=== PATIENT | female | born 1970 | race African-American/Black ===

== ENCOUNTER 2017-02-13 12:01 | Inpatient (IN) | payer MEDICAID ==
[~2017-02-13] VITALS: Ht 160 cm; Wt 141.5 kg
[~2017-02-13 12:01] MED LIST: DILANTIN 100MG100 MG PO; DITROPAN 5MG TAB5 MG PO; LEVAQUIN 5500 MG/TA1 PO; NORCO 325 MG-51 TAB PO; RISPERDAL4 MG PO; RT ALBUTER2.5 MG/0.5 IH; SINGULAIR 110 MG/TAB PO; SYNTHROID0.05 MG/TA PO; TRIAMCINOLONE A15 GM TP; VENTOLIN0.09 MG IH; ZOFRAN 4MG T4 MG/TAB PO; ZOLOFT 100MG100 MG PO; ZYRTEC 10MG10 MG PO
[2017-04-28] VITALS (384 sets, daily range): BP systolic 107–146; BP diastolic 50–93; PULSE 76–90; TEMP 97–98; O2SAT 96–100
[2017-04-28] MEDS ORDERED: AMITRIPTYLINE H50 M1 PO (17:52)
[2017-04-28] MEDS ORDERED: LASIX 40MG TABL40 MG PO (17:58)
[2017-04-28] MEDS ORDERED: COLACE 100100 MG/CAP PO (17:59)
[2017-04-28] MEDS ORDERED: LOPRESSOR 225 MG/TAB PO (18:01)
[2017-04-28] MEDS ORDERED: K-DUR20 MEQ PO (18:02)
[2017-04-28] MEDS ORDERED: VITAMIN D 50,1.25 MG PO (18:03)
[2017-04-29] VITALS (510 sets, daily range): BP systolic 93–133; BP diastolic 53–94; PULSE 77–100; TEMP 97–100; O2SAT 85–100
[2017-04-29 08:26] LABS: HEMATOCRIT 38.9 % (37.0-47.0); HEMOGLOBIN 12.3 g/dl (12.5-16.0)
[2017-04-30 04:29] VITALS: BP 104/56; PULSE 86; TEMP 98.4
[2017-04-30] MEDS ORDERED: XARELTO10 MG PO (06:25)
[2017-04-30] MEDS ORDERED: ULTRAM 50MG TAB50 MG PO (06:26)
[2017-04-30] MEDS ORDERED: NORCO 325 MG-51 TAB PO (06:26)
[2017-04-30 07:20] VITALS: BP 108/63; PULSE 93; TEMP 98.4
[2017-04-30 07:53] LABS: HEMATOCRIT 36.3 % (37.0-47.0); HEMOGLOBIN 11.5 g/dl (12.5-16.0)
[2017-04-30 12:01] VITALS: BP 105/59; PULSE 79; TEMP 98.5
[2017-04-30 17:44] VITALS: BP 102/60; PULSE 89
[2017-04-30 20:13] VITALS: BP 107/71; PULSE 106; TEMP 99.7
[2017-05-01 00:38] VITALS: BP 116/68; PULSE 105; TEMP 99.6
[2017-05-01 03:49] VITALS: BP 142/72; PULSE 108; TEMP 98.3
[2017-05-01 07:55] VITALS: BP 133/66; PULSE 85; TEMP 100.2
[2017-05-01 12:56] VITALS: BP 111/67; PULSE 91; TEMP 98.3
[2017-05-01 16:41] VITALS: BP 145/74; PULSE 76; TEMP 98.9
[2017-05-01 21:48] VITALS: BP 118/85; PULSE 104; TEMP 98.2
[2017-05-02 04:32] VITALS: BP 117/75; PULSE 104; TEMP 98.6
[2017-05-02 08:33] VITALS: BP 97/64; PULSE 93; TEMP 98.2
[2017-05-02 12:42] VITALS: BP 112/72; PULSE 100; TEMP 98.7
[2017-05-02 16:20] VITALS: BP 131/79; PULSE 96; TEMP 98.3
[2017-05-02 20:00] VITALS: BP 136/85; PULSE 95; TEMP 98.1
[2017-05-03 06:23] VITALS: BP 140/79; PULSE 104; TEMP 99
[2017-05-03 09:36] VITALS: BP 121/91; PULSE 112; TEMP 98.3
[2017-05-03 15:55] VITALS: BP 117/75; PULSE 98; TEMP 98.5
[2017-05-03 21:14] VITALS: BP 146/78; PULSE 121; TEMP 98.6
[2017-05-04 00:52] VITALS: BP 114/61; PULSE 102; TEMP 99.6
[2017-05-04 04:44] VITALS: BP 125/78; PULSE 108; TEMP 99.5
[2017-05-04 08:00] VITALS: BP 132/84; PULSE 112; TEMP 97.8
[2017-05-04 12:00] VITALS: BP 103/66; PULSE 93; TEMP 98.2
[2017-05-04 13:59] VITALS: BP 103/66; PULSE 93; TEMP 98.2
== END 2017-05-04 15:14 | disposition swing bed (61) | DRG 470 ==
LOC: JCC 04-06 07:30 → SURG 04-28 07:57 → JCC 04-28 11:45 → ICU 04-28 16:45 → SURG 04-29 09:20
PROVIDERS: Orthopaedic Surgery; Physician Assistant
PROC: 0SRD0J9 Replacement of Left Knee Joint with Synthetic Substitute, Cemented, Open Approach (ICD-10-PCS; principal; 2017-04-28 11:45)
DX: M17.12 Unilateral primary osteoarthritis, left knee (principal); R33.9 Retention of urine, unspecified; F20.9 Schizophrenia, unspecified; J45.909 Unspecified asthma, uncomplicated; F41.8 Other specified anxiety disorders
CPT/HCPCS: A4315; A9284; C1713; C1776; J2250; J2405; J2704; J2765; J2795; J3010; J7050; J7120

== ENCOUNTER → 2017-03-09 | Outpatient (CLI) | payer MEDICAID ==
[~2017-03-09] MED LIST changes: +AMITRIPTYLINE H50 M1 PO; +COLACE 100100 MG/CAP PO; +K-DUR20 MEQ PO; +LASIX 40MG TABL40 MG PO; +LOPRESSOR 225 MG/TAB PO; +ULTRAM 50MG TAB50 MG PO; +VITAMIN D 50,1.25 MG PO; +XARELTO10 MG PO
== END ==
LOC: COL.RAD 11:46
DX: M25.562 Pain in left knee (principal); M17.12 Unilateral primary osteoarthritis, left knee

== ENCOUNTER 2017-04-24 10:24 | Outpatient (RCR) | payer MEDICAID ==
[~2017-04-24 10:24] MED LIST changes: -AMITRIPTYLINE H50 M1 PO; -COLACE 100100 MG/CAP PO; -K-DUR20 MEQ PO; -LASIX 40MG TABL40 MG PO; -LOPRESSOR 225 MG/TAB PO; -ULTRAM 50MG TAB50 MG PO; -VITAMIN D 50,1.25 MG PO; -XARELTO10 MG PO
== END 2017-04-24 12:39 | disposition still patient (30) ==
LOC: WSPT 10:24
DX: Z01.818 Encounter for other preprocedural examination (principal); M17.12 Unilateral primary osteoarthritis, left knee

== ENCOUNTER 2017-06-30 15:26 | Outpatient (RCR) | payer MEDICAID ==
[~2017-06-30 15:26] MED LIST changes: +AMITRIPTYLINE H50 M1 PO; +COLACE 100100 MG/CAP PO; +K-DUR20 MEQ PO; +LASIX 40MG TABL40 MG PO; +LOPRESSOR 225 MG/TAB PO; +ULTRAM 50MG TAB50 MG PO; +VITAMIN D 50,1.25 MG PO; +XARELTO10 MG PO
== END 2017-07-01 12:38 ==
LOC: WSPT 15:26
DX: Z96.652 Presence of left artificial knee joint (principal)

== ENCOUNTER 2017-09-18 10:30 | Outpatient (RCR) | payer MEDICAID | END 2017-10-07 10:15 | disposition home or self-care (01) | LOC: WSPT 10:30 | DX: Z47.1 Aftercare following joint replacement surgery (principal); Z96.652 Presence of left artificial knee joint ==

== ENCOUNTER 2018-02-15 10:30 | Outpatient (RCR) | payer MEDICAID | END 2018-02-20 09:36 | disposition home or self-care (01) | LOC: WSPT 10:30 | DX: Z47.1 Aftercare following joint replacement surgery (principal); M25.562 Pain in left knee; Z96.652 Presence of left artificial knee joint ==

== ENCOUNTER → 2018-04-08 | Outpatient (CLI) | payer MEDICAID | LOC: COL.PUL 11:57 | DX: R06.02 Shortness of breath (principal) ==

== ENCOUNTER → 2018-04-28 | Outpatient (CLI) | payer MEDICAID | LOC: MHCPAIN 12:36 | DX: G89.29 Other chronic pain (principal); M47.817 Spondylosis without myelopathy or radiculopathy, lumbosacral region; M54.16 Radiculopathy, lumbar region; M53.3 Sacrococcygeal disorders, not elsewhere classified | CPT/HCPCS: G0463 ==